=== PATIENT | female | born 1930 | race Caucasian/White ===

== ENCOUNTER 2019-01-19 00:41 | Emergency (ER) | payer MEDICARE, BC ==
--- NOTE | 2019-01-19 01:28 | RADIOLOGY REPORT (SQ) ---
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 COMPARISON: None. FINDINGS: Generalized osteopenia is present. There are multiple lucencies within the right femoral neck and intertrochanteric region which likely represent a nondisplaced fracture. No hip joint dislocation. Surgical clips are seen throughout the pelvis. IMPRESSION: Acute right femoral intertrochanteric fracture.
[2019-01-19] MEDS ORDERED: ONDANSETRON HCL INJ/PF 4 MG/2 ML SDV IV ONE (01:50)
[2019-01-19] MEDS ORDERED: MORPHINE SULFATE 10 MG/ML INJ IV ONE (01:50)
--- NOTE | 2019-01-19 01:54 | ER Document Report ---
ED Hip Pain/Injury - General Chief Complaint: Hip Pain Stated Complaint: FALL Time Seen by Provider: 01/19/19 01:43 Primary Care Provider: RASHEED QUEEN MD [Primary Care Provider] - Follow up as needed Notes: Patient is an 88-year-old female that comes to the emergency department for chief complaint of fall and right hip pain. She states she was carrying sheets, she "got tangled up in them" and tripped, she fell mainly landing on her right hip. She denies any other locations of pain, she denies hitting her head, she denies incontinence. She is on aspirin but no other blood thinners. She lives by herself at home, her neighbor brought her to the emergency department. Past medical history of CAD and UT. - Related Data Allergies/Adverse Reactions: Penicillins Allergy (Verified 01/19/19 00:51) Sulfa (Sulfonamide Antibiotics) Allergy (Verified 01/19/19 00:51) Past Medical History - General Information source: Patient, Friend - Social History Smoking Status: Never Smoker Frequency of alcohol use: None Drug Abuse: None Lives with: Alone Family History: Reviewed & Not Pertinent Patient has suicidal ideation: No Patient has homicidal ideation: No - Past Medical History Cardiac Medical History: Reports: Hx Hypertension - Immunizations Immunizations up to date: Yes Hx Diphtheria, Pertussis, Tetanus Vaccination: Yes Review of Systems - Review of Systems Constitutional: No symptoms reported EENT: No symptoms reported Cardiovascular: No symptoms reported Respiratory: No symptoms reported Gastrointestinal: No symptoms reported Genitourinary: No symptoms reported Female Genitourinary: No symptoms reported Musculoskeletal: See HPI Skin: No symptoms reported Hematologic/Lymphatic: No symptoms reported Neurological/Psychological: No symptoms reported Physical Exam - Vital signs Vitals: BP 163/89 H 01/19/19 00:45 - Notes Notes: GENERAL: Alert, interacts well. When she moves she has obvious pain but otherwise she has no distress HEAD: Normocephalic, atraumatic. EYES: Pupils equal, round, and reactive to light. Extraocular movements intact. ENT: Oral mucosa moist, tongue midline. Oropharynx unremarkable. Airway patent. NECK: Full range of motion. Supple. Trachea midline. LUNGS: Clear to auscultation bilaterally, no wheezes, rales, or rhonchi. No respiratory distress. No signs of trauma. HEART: Regular rate and rhythm. No murmur ABDOMEN: Soft, non-tender. Non-distended. Bowel sounds present in all 4 quadrants. No signs of trauma. GENITOURINARY: No swelling or signs of trauma. EXTREMITIES: Obvious pain with palpation over the right hip generally, patient has difficulty moving this at all. Normal distal neurovascular exam however. External knees all are normal otherwise. BACK: no cervical, thoracic, lumbar midline tenderness. No saddle anesthesia, normal distal neurovascular exam. NEUROLOGICAL: Alert and oriented x3. Normal speech. Cranial nerves II through XII grossly intact. PSYCH: Normal affect, normal mood. SKIN: Warm, dry, normal turgor. No rashes or lesions noted. Course - Re-evaluation Re-evalutation: Patient has obvious right hip pain and does not want to move the right leg as a result, however she has no traumatic findings, no concerning findings on physical exam otherwise. She is alert, conversational, well-appearing. Vital signs unremarkable except for mild hypertension. X-ray confirms right hip intertrochanteric fracture at the femur. Preop labs ordered. Called and spoke with the telephone operator receptionist, this confirmed we do not have orthopedics consumer marketing specialist this weekend. Patient will require transfer for orthopedic surgery. Patient does live at home and is ambulatory. She is very youthful for her age. Discussed with patient, she requests transfer to [facility] because she is close to family there. CBC, chemistry, urinalysis, chest x-ray, EKG nonspecific with no concerning abnormality at this time. Patient is much more comfortable after treatment with pain medication and a Alejandro catheter was placed. Discussed with Dr. Orellana. 01/19/19 02:[address] Winkler, orthopedics on-call at [facility], he accepts patient for transfer. 01/19/19 03:31 Patient reevaluated at bedside, comfortable, no significant change from prior, no concerning change in vital signs. Transport team will be here within the hour. Patient is stable for transport. 01/19/19 04:42 Transfer team is here, patient asking for something for pain before being transported, she was provided with this. Blood pressure is 122 systolic, heart rate 63. Stable for transport. - Vital Signs Vital signs: Temp Pulse Resp BP Pulse Ox 99.1 F 15 122/46 L 91 L 01/19/19 00:49 01/19/19 04:01 01/19/19 04:01 01/19/19 04:01 - Laboratory Result Diagrams: 01/19/19 02:05 01/19/19 02:05 Laboratory results interpreted by me: 01/19/19 01/19/19 01/19/19 02:05 02:05 02:43 WBC 10.9 H Plt Count 134 L Lymph % (Auto) 10.9 L Absolute Neuts (auto) 8.9 H Seg Neutrophils % 81.5 H Est GFR (MDRD) Non-Af 58 L Glucose 118 H AST 52 H Urine Urobilinogen 2.0 H Discharge - Discharge Clinical Impression: Closed right hip fracture Qualifiers: Encounter type: initial encounter Qualified Code(s): S72.001A - Fracture of unspecified part of neck of right femur, initial encounter for closed fracture Fall Qualifiers: Encounter type: initial encounter Qualified Code(s): W19.XXXA - Unspecified fall, initial encounter Condition: Stable Disposition: Psychiatric hospital Referrals: RASHEED QUEEN MD [Primary Care Provider] - Follow up as needed
[2019-01-19 02:13] LABS: ABSOLUTE LYMPHOCYTES (AUTO) 1.2 10^3/uL (0.5-4.7); ABSOLUTE MONOCYTES (AUTO) 0.7 10^3/uL (0.1-1.4); ABSOLUTE NEUT (AUTO) 8.9 10^3/uL (1.7-8.2); BASOPHILS % (AUTO) 0.4 % (0-2); EOSINOPHILS % (AUTO) 0.4 % (0-6); HEMATOCRIT 38.7 % (36.0-47.0); HEMOGLOBIN 13.3 g/dL (12.0-15.5); LYMPHOCYTES % (AUTO) 10.9 % (13-45); MEAN CORPUSCULAR HEMOGLOBIN 31.5 pg (27.0-33.4); MEAN CORPUSCULAR HGB CONC 34.4 g/dL (32.0-36.0); MEAN CORPUSCULAR VOLUME 92 fl (80-97); MONOCYTES % (AUTO) 6.8 % (3-13); PLATELET COUNT 134 10^3/uL (150-450); RED BLOOD COUNT 4.23 10^6/uL (3.72-5.28); RED CELL DISTRIBUTION WIDTH 13.7 % (11.5-14.0); SEGMENTED NEUTROPHILS % (AUTO) 81.5 % (42-78); TOTAL CELLS COUNTED % (AUTO) 100 %; WHITE BLOOD COUNT 10.9 10^3/uL (4.0-10.5)
--- NOTE | 2019-01-19 02:19 | RADIOLOGY REPORT (SQ) ---
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 COMPARISON: None. FINDINGS: The heart size is within normal limits. No pulmonary vascular congestion is seen. No consolidation, pleural effusion, or pneumothorax is seen. No acute bony findings. IMPRESSION: No acute cardiopulmonary disease.
[2019-01-19 02:40] LABS: ALBUMIN 4.1 g/dL (3.5-5.0); ALKALINE PHOSPHATASE 115 U/L (38-126); ANION GAP 12 (5-19); ASPARTATE AMINO TRANSFERASE 52 U/L (14-36); BILIRUBIN,DIRECT 0.1 mg/dL (0.0-0.4); BILIRUBIN,TOTAL 0.6 mg/dL (0.2-1.3); BLOOD UREA NITROGEN 20 mg/dL (7-20); CALCIUM 9.4 mg/dL (8.4-10.2); CARBON DIOXIDE 22 mmol/L (22-30); CHLORIDE 106 mmol/L (98-107); GLUCOSE 118 mg/dL (75-110); POTASSIUM 4.4 mmol/L (3.6-5.0); TOTAL PROTEIN 7.2 g/dL (6.3-8.2)
[2019-01-19 02:52] LABS: APPEARANCE,URINE CLEAR; BILIRUBIN,URINE NEGATIVE (NEGATIVE); COLOR,URINE YELLOW; GLUCOSE, URINE NEGATIVE (NEGATIVE); KETONES,URINE NEGATIVE (NEGATIVE); LEUKOCYTE ESTERASE,URINE NEGATIVE (NEGATIVE); NITRITE,URINE NEGATIVE (NEGATIVE); PROTEIN,URINE NEGATIVE (NEGATIVE); URINE SPECIFIC GRAVITY 1.017
[2019-01-19] MEDS ORDERED: HYDROMORPHONE HCL INJ/PF 2 MG/ML AMPULE IV ONE ×2 (02:52→04:42)
[2019-01-19 04:15] VITALS: BP 122/46
--- NOTE | 2019-01-19 17:07 | EKG REPORT ---
SEVERITY:- OTHERWISE NORMAL ECG - SINUS RHYTHM BORDERLINE LEFT AXIS DEVIATION : Confirmed by: En Erwin MD 19-Jan-2019 17:06:58
== END 2019-01-19 05:00 | disposition short-term general hospital (02) ==
LOC: ER 00:41
DX: S72.091A Other fracture of head and neck of right femur, initial encounter for closed fracture (principal); M25.551 Pain in right hip; W01.0XXA Fall on same level from slipping, tripping and stumbling without subsequent striking against object, initial encounter; I25.10 Atherosclerotic heart disease of native coronary artery without angina pectoris; I10 Essential (primary) hypertension; I25.2 Old myocardial infarction; Z79.82 Long term (current) use of aspirin; Z88.0 Allergy status to penicillin; Z88.2 Allergy status to sulfonamides
CPT/HCPCS: 93005; 96376; 99285; 51702; 96374; 96375; 36415; 85025; 80053; 81001; 71045; 73502; 93010; J2270; J1170; J2405